=== PATIENT | female | born 2000 | race Caucasian/White ===

== ENCOUNTER 2025-03-21 07:35 | Inpatient (IN) ==
--- NOTE | 2025-03-21 08:06 | Anesthesiology Consultation ---
Date of Service March 21, 2025 Assessment & Plan Chart Review Chart Review: Patient NOT seen in Pre Admission Testing and Acceptable Risk for Labor Epidural Consults Requested none ASA ASA2 Proposed Anesthesia Anesthesia Type: Labor Epidural Risk / Benefits Reviewed With: PT / POA / Parent / Guardian, Accepts Plan and Informed Consent Obtained History Allergies Allergy/AdvReac Type Severity Reaction Status Date / Time No Known Allergies Allergy Verified 03/20/25 10:20 Medications Home Medications Medication Instructions Recorded Confirmed Last Taken ascorbic acid (vitamin C) PO 08/28/24 03/20/25 Unknown cetirizine PO 08/28/24 03/20/25 Unknown fluticasone propionate 50 1 spray intranasal DAILY 08/28/24 03/20/25 Unknown mcg/actuation nasal spray,suspension (Flonase Allergy Relief) [id number] PO 08/28/24 03/20/25 Unknown [ Plus] pyridoxine (vitamin B6) PO 08/28/24 03/20/25 Unknown acetone (urine) test (Ketone Urine #50 ea 11/02/24 03/20/25 Unknown Test strips) blood sugar diagnostic (OneTouch #150 ea 11/02/24 03/20/25 Unknown Verio test strips) blood-glucose meter (OneTouch #1 ea 11/02/24 03/20/25 Unknown Verio Reflect Meter) lancets 33 gauge (OneTouch Delica #150 ea 11/02/24 03/20/25 Unknown Plus Lancet) pen needle, diabetic 32 gauge x #100 ea 12/03/24 03/20/25 Unknown " insulin NPH isoph U-100 human 100 26 unit (0.26 mL) subcut QPM #15 mL 02/13/25 03/20/25 Unknown unit/mL (3 mL) subcutaneous pen (Novolin N FlexPen) NPO Date Last Intake of Fluids: 03/21/25 Time Last Intake of Fluids: 07:20 Date Last Intake of Solids: 03/21/25 Time Last Intake of Solids: 07:20 Past Medical History Medical History Allergic reaction UTI (urinary tract infection) Exercise / Class Metabolic Activity 1 > 8 Run/Swim/Ski/Tennis Past Family History Family History Denies family history of Ovarian cancer Breast cancer Colorectal cancer Past Surgical History Surgical History S/P wisdom tooth extraction Past Anesthesia History No Hx of Anesthesia Complications and No Family Hx of Anesthesia Complications History of PONV No Hx of PONV and No Hx of Motion Sickness Social History Smoking Status: Never smoker Do You Dip or Chew Tobacco: No Hx Alcohol Use: No Hx Substance Use: No Review of Systems ROS Unobtainable: All systems reviewed & are unremarkable except as noted in HPI & below Physical Exam Vital Signs Last Vital Signs Pulse 117 H 03/21/25 07:52 BP 134/88 03/21/25 07:52 ENMT Mouth: no TMJ abnormality Thyromental Distance: > or= 3.5 Finger Breadths Mallampati Class: II Neck normal visual inspection and trachea midline; neck extension not limited Respiratory normal respiratory effort Auscultation: lungs clear to auscultation bilaterally Cardiovascular Rate/Rhythm: regular rate and regular rhythm Heart Sounds: no murmur Musculoskeletal Spine: normal cervical ROM Extremities: full ROM of extremities Neurologic moves all extremities Psychiatric Orientation: alert and oriented x 3
[2025-03-21] MEDS ORDERED: ACETAMINOPHEN 500 MG TAB PO PRN (08:33)
[2025-03-21] MEDS ORDERED: OXYTOCIN 30 UNITS/NSS 30 UNITS/500 ML BAG IV PRN ×2 (08:33→20:26)
[2025-03-21] MEDS ORDERED: CALCIUM CARBONATE 500 MG CHEWABLE TAB PO PRN (08:33)
[2025-03-21] MEDS ORDERED: LIDOCAINE 1% LOCAL 20 ML VIAL INFIL PRN (08:33)
[2025-03-21] MEDS: LACTATED RINGER'S 1,000 ML IV PRN (09:01)
[2025-03-21] MEDS: OXYTOCIN 30 UNITS/NSS 30 UNITS/500 ML BAG IV PRN (09:02)
[2025-03-21 09:14] LABS: Hematocrit (blood only) 34.8 % (37.0-47.0); Hemoglobin 12.1 g/dl (12.0-16.0); Mean Corpuscular Hemoglobin 30.4 pg (25.0-34.0); Mean Corpuscular Volume 87.4 fL (80.0-100.0); Platelet Count 177 K/uL (130-400); RDW Standard Deviation 43.0 fL (36.4-46.3); Red Blood Count 3.98 M/uL (4.20-5.40); White Blood Count 10.18 K/ul (4.8-10.8)
--- NOTE | 2025-03-21 12:29 | Hospitalist Consultation ---
Date of Consultation March 21, 2025 Assessment & Plan (1) Encounter for induction of labor: Plan Admit pt; iv, labs, add Pitocin as needed; FHR category I Supervising Physician Co-Signing Physician Notes Patient seen with resident and agree with the above findings and plan. Cervix closed long and high on exam. Attempted Mckeon unsuccessful as cervix very high and posterior. Will start with oxytocin for cervical ripening will plan to place cervical Mckeon if needed when able. History of Present Illness Attending Physician: Jony Loaiza MD History of Present Illness Contractions: Negative Painful: Negative Leaky Fluid: Negative Movement: Present Pt is a 24 yo Female, , 37 wks 2 day, arrives to Labor & Delivery for induction of labor. Pt appears AOx3 and is accompanied by her to the unit Labs: Rhesus Positive, GBS Negative. Rubella Immune Hx of STDs: Negative Allergies Allergy/AdvReac Type Severity Reaction Status Date / Time No Known Allergies Allergy Verified 03/20/25 10:20 Home Medications Medication Instructions Recorded Confirmed Type cetirizine 10 mg PO DAILY 08/28/24 03/21/25 History fluticasone propionate 50 1 spray intranasal DAILY 08/28/24 03/21/25 History mcg/actuation nasal spray,suspension (Flonase Allergy Relief) acetone (urine) test (Ketone Urine #50 ea 11/02/24 03/20/25 Rx Test strips) blood sugar diagnostic (OneTouch #150 ea 11/02/24 03/20/25 Rx Verio test strips) blood-glucose meter (OneTouch #1 ea 11/02/24 03/20/25 Rx Verio Reflect Meter) lancets 33 gauge (OneTouch Delica #150 ea 11/02/24 03/20/25 Rx Plus Lancet) pen needle, diabetic 32 gauge x #100 ea 12/03/24 03/20/25 Rx 5/32" insulin NPH isoph U-100 human 100 26 unit (0.26 mL) subcut QPM #15 mL 02/13/25 03/21/25 Rx unit/mL (3 mL) subcutaneous pen (Novolin N FlexPen) vits no.124-ferrous fum 1 tab PO DAILY 03/21/25 03/21/25 History 27 mg iron-folic acid 800 mcg tablet ( Vitamin) Patient History Medical History (Updated 03/21/25 @ 13:49 by Lisa Rudolph MD) Allergic reaction lip and facial swelling, hives-took prednisone. pt states ?stress related UTI (urinary tract infection) Surgical History S/P wisdom tooth extraction Family History (Updated 03/21/25 @ 09:21 by Maude Kincaid RN) Uncle Heart failure Grandmother (Maternal) Hypertension Grandmother (Maternal) Diabetes Aunt Diabetes Grandfather (Maternal) Diabetes Other Colon cancer Denies family history of Ovarian cancer Breast cancer Social History (Updated 08/28/24 @ 10:56 by Breana Mayfield RN) Smoking Status: Never smoker Do You Dip or Chew Tobacco: No; Hx Alcohol Use: No Hx Substance Use: No Preferred Language: Upper Sorbian Communication Ability: Effective Membership Assistant Required: No Beliefs That Will Affect Care: Islam Islam Beliefs: Evangelical marital status: marital status details: Grabiel Castro (29) [phone] Current Living Situation: Spouse Current Living Situation Comment: Lives with current occupational status: unemployed Feels Safe at Home: Yes Review of Systems Review of Systems: All systems reviewed & are unremarkable except as noted in HPI & below i. Denies fever, chills, sweats ii. Denies SOB, difficulty breathing, chest pain, palpitations, chest pressure iii. Denies breast pain. iv. Denies Dysuria v. Denies headache or changes in vision. Physical Exam Constitutional: WD/WN, vitals as above Eyes: PERRL, conjunctivae normal, anicteric sclerae ENMT: external ear and nose normal, oropharynx normal Neck: trachea midline, no thyromegaly Respiratory: normal respiratory effort, lungs clear to auscultation Cardiovascular: RRR, no murmur, no edema Chest (Breasts): normal inspection/palpation of breasts Gastrointestinal (Abdomen): normal bowel sounds, soft, nontender, no hepatosplenomegaly Musculoskeletal: no cyanosis or clubbing, extremities motor strength 5/5 Skin: no rashes, warm and dry Psychiatric: A+Ox3, euthymic affect Genitourinary: As per Dr. Loaiza's attestation Lymphatic: no cervical or axillary lymphadenopathy Results & Data Results & Data Vital Signs (Past 12 Hours) Vital Signs Temp Pulse Resp BP 03/21/25 11:23 80 03/21/25 11:23 127/74 03/21/25 11:22 18 03/21/25 11:22 37.1 C 18 03/21/25 10:42 83 03/21/25 10:42 129/83 03/21/25 10:40 16 03/21/25 10:40 16 03/21/25 09:53 86 03/21/25 09:53 127/83 03/21/25 09:21 37 C 117 H 18 134/88 03/21/25 07:52 117 H 134/88 03/21/25 07:50 18 03/21/25 07:50 37.0 C 18 Resident Activity Tracking Resident Involvement: Resident Care Provided Care Provided: OB Delivery
[2025-03-21] MEDS ORDERED: BUPIVACAINE 0.25% PF 30 ML VIAL EPI PRN (13:43)
[2025-03-21] MEDS ORDERED: NALBUPHINE HCL INJ 10 MG/ML AMP IV PRN (13:43)
[2025-03-21] MEDS ORDERED: LIDOCAINE 2% MPF LOCAL 5 ML VIAL EPI PRN (13:43)
[2025-03-21] MEDS ORDERED: SODIUM CHLORIDE 0.9% PF INJ 10 ML VIAL EPI PRN (13:43)
[2025-03-21] MEDS ORDERED: diphenhydrAMINE 50 MG/ML VIAL IV PRN (13:43)
[2025-03-21] MEDS ORDERED: NALOXONE HCL 0.4 MG/1 ML VIAL/CARP IV PRN (13:43)
[2025-03-21] MEDS ORDERED: ROPIVACAINE 0.5% PF 5 MG/ML 20 ML VIAL EPI PRN (13:43)
[2025-03-21] MEDS ORDERED: NALOXONE HCL 1 MG in SODIUM CHLORIDE 0.9% 1,000 ML IV PRN (13:43)
[2025-03-21] MEDS ORDERED: fentANYL 2 MCG/ML BUPIVacaine 0.125%-NSS 100ML BAG EPI PRN (13:43)
[2025-03-21] MEDS: LIDOCAINE 2%/EPINEPHRINE 1:200,000 20 ML PF EPI STA (14:05)
[2025-03-21] MEDS: BUPIVACAINE 0.25% PF 30 ML VIAL EPI STA (14:05)
[2025-03-21] MEDS: fentANYL 2 MCG/ML BUPIVacaine 0.125%-NSS 100ML BAG ONE (14:05)
[2025-03-21] MEDS: SODIUM CHLORIDE 0.9% PF INJ 10 ML VIAL EPI STA (14:17)
--- NOTE | 2025-03-21 15:34 | Labor Progress Brief Note ---
Date of Service March 21, 2025 Subjective Reason For Note: Routine Evaluation Assessment & Plan (1) Encounter for induction of labor: Plan: Minimal cervical change noted although patient favorable. Has an excellent contraction pattern at present. AROM for clear. Epidural in place and patient comfortable. Blood sugars and vitals have been within normal range. (2) Insulin controlled gestational diabetes mellitus (GDM) during : Trimester: third trimester Qualified Code(s): O24.414 - Gestational diabetes mellitus in , insulin controlled Admission and Anticipated Discharge Date Admission Date: March 21, 2025 Physical Exam Genitourinary: Manual OB Exam: + cervical dilation 3 cm, + cervical effacement 80%, + station -2 and + amniotic fluid (AROM) clear OB Exam Monitor Tracing: + external FHT monitor used, + external uterine monitor used, + category I and + normal FHT variability Results & Data Vital Signs (Past 12 Hours) Vital Signs Temp Pulse Resp BP Pulse Ox 03/21/25 15:28 95 03/21/25 15:28 61 03/21/25 15:27 90 03/21/25 15:27 77 03/21/25 15:24 65 03/21/25 15:24 111/64 03/21/25 15:23 96 03/21/25 15:23 64 03/21/25 15:21 91 03/21/25 15:21 77 03/21/25 15:18 98 03/21/25 15:18 71 03/21/25 15:13 96 03/21/25 15:13 76 03/21/25 15:10 70 03/21/25 15:10 115/65 03/21/25 15:08 97 03/21/25 15:08 70 03/21/25 15:03 98 03/21/25 15:03 63 03/21/25 14:58 98 03/21/25 14:58 62 03/21/25 14:55 70 03/21/25 14:55 116/64 03/21/25 14:53 99 03/21/25 14:53 61 03/21/25 14:48 98 03/21/25 14:48 66 03/21/25 14:43 98 03/21/25 14:43 59 L 03/21/25 14:40 74 03/21/25 14:40 120/74 03/21/25 14:38 99 03/21/25 14:38 85 03/21/25 14:33 98 03/21/25 14:33 94 H 03/21/25 14:28 98 03/21/25 14:28 94 H 03/21/25 14:23 99 03/21/25 14:23 100 H 03/21/25 14:23 104 H 03/21/25 14:23 118/75 03/21/25 14:21 87 03/21/25 14:21 124/74 03/21/25 14:20 91 H 03/21/25 14:20 128/78 03/21/25 14:18 99 03/21/25 14:18 81 03/21/25 14:17 87 03/21/25 14:17 123/64 03/21/25 14:15 85 03/21/25 14:15 124/64 03/21/25 14:13 99 03/21/25 14:13 93 H 03/21/25 14:13 126/63 03/21/25 14:11 83 03/21/25 14:11 130/69 03/21/25 14:09 86 L 03/21/25 14:09 83 03/21/25 14:09 131/75 03/21/25 14:08 100 03/21/25 14:08 96 H 03/21/25 14:07 96 H 03/21/25 14:07 134/79 03/21/25 14:06 93 H 03/21/25 14:06 137/81 03/21/25 14:05 84 03/21/25 14:05 141/77 H 03/21/25 14:03 94 03/21/25 14:03 106 H 03/21/25 14:03 146/91 H 03/21/25 14:00 93 03/21/25 14:00 96 H 03/21/25 14:00 146/81 H 03/21/25 13:58 100 03/21/25 13:58 92 H 03/21/25 13:46 18 03/21/25 13:46 18 03/21/25 13:34 85 03/21/25 13:34 127/80 03/21/25 12:49 90 03/21/25 12:49 144/73 H 03/21/25 11:23 80 03/21/25 11:23 127/74 03/21/25 11:22 18 03/21/25 11:22 37.1 C 18 03/21/25 10:42 83 03/21/25 10:42 129/83 03/21/25 10:40 16 03/21/25 10:40 16 03/21/25 09:53 86 03/21/25 09:53 127/83 03/21/25 09:21 37 C 117 H 18 134/88 03/21/25 07:52 117 H 134/88 03/21/25 07:50 18 03/21/25 07:50 37.0 C 18 Coding Level of Care Code None Diagnoses Encounter for induction of labor Z34.90 Insulin controlled gestational diabetes mellitus (GDM) in third trimester O24.414 Trimester: third trimester
[2025-03-21] MEDS: BUPIVACAINE 0.25% PF 30 ML VIAL ONE (17:03)
[2025-03-21] MEDS: SODIUM CHLORIDE 0.9% PF INJ 10 ML VIAL ONE (17:03)
[2025-03-21] MEDS: LIDOCAINE 2%/EPINEPHRINE 1:200,000 20 ML PF ONE (17:04)
[2025-03-21] MEDS ORDERED: HYDROCORTISONE ACETATE 25 MG SUPP PR PRN (20:26)
--- NOTE | 2025-03-21 20:29 | Delivery Summary ---
Vaginal Delivery Summary Date of Service March 21, 2025 Vaginal Delivery Summary and 1st Degree LAC Patient progressed to 10 cm dilated, 100% effaced +2 station and posterior intact perineum with epidural anesthesia delivered a viable with weight and Apgars pending. Has a delivered without difficulty quickly followed by shoulders and body. was noted be vigorous upon delivery and a 1 minute delayed cord clamping was initiated. Cord was then double clamped and cut remained on the maternal abdomen. Cord blood obtained and attention turned to delivery the placenta was delivered intact with three-vessel cord with gentle cord traction. Inspection of perineum vagina and cervix there is noted to be a first-degree perineal laceration with mild labial extensions. Lacerations were repaired with 3-0 Vicryl in continuous running stitch. Needle sponge and instrument counts were correct at the completion of the case. Both mother and stable in the immediate postdelivery timeframe. No complications noted and blood loss per QBL. [facility] Vaginal Delivery Charge Delivery Type Details: and 1st Degree LAC
--- NOTE | 2025-03-21 20:36 | Anesthesia Procedure Note ---
Date of Service March 21, 2025 Anesthesia Post Epidural Note Vital Signs Vital Signs: Temp Pulse Resp BP Pulse Ox 37.1 C 83 18 110/79 98 03/21/25 19:10 03/21/25 20:21 03/21/25 19:10 03/21/25 20:21 03/21/25 20:19 Pain Intensity Lower Back: Pain Intensity: 5 Notes Mental Status: alert / awake / arousable and participated in evaluation Nausea / Vomiting: adequately controlled Pain: adequately controlled Airway Patency, RR, SpO2: stable & adequate BP & HR: stable & adequate Hydration State: stable & adequate Neuraxial Anesthesia: was administered and sensory block is resolving Anesthetic Complications: no major complications apparent Epidural: Removed without complications and With tip intact
[2025-03-21] MEDS: DIPHTHER/TETAN/PERTUS Vaccine (Tdap, Adol/Adult) 0.5mL IM ONE (21:18)
[2025-03-21] MEDS: DOCUSATE SODIUM 100 MG CAP PO SCH (21:23)
[2025-03-22] MEDS: IBUPROFEN 600 MG TAB PO PRN (00:29)
[2025-03-22] MEDS: ACETAMINOPHEN 325 MG TAB PO PRN (00:30)
[2025-03-22] MEDS: BENZOCAINE 20% SPRY 85 APPLN/85 GM CAN EXT PRN (03:29)
--- NOTE | 2025-03-22 06:39 | Obstetrical Progress Note ---
Date of Service <Lisa Rudolph MD - Last Filed: 03/22/25 06:39> March 22, 2025 Assessment & Plan <Lisa Rudolph MD - Last Filed: 03/22/25 06:39> (1) care following vaginal delivery: Plan Stable routine care. Breast feeding. Rhesus Positive. Rubella Immune <Jony Loaiza MD - Last Filed: 03/22/25 07:37> (1) care following vaginal delivery: Subjective <Lisa Rudolph MD - Last Filed: 03/22/25 06:39> Ambulation: ambulating normally Voiding: no voiding problems Passing Gas:: Yes Lochia:: Small Feeding Type:: breast feeding Current Pain Level(1-10): 1 Pt is a 24 yo Female, G1, P0, at 37 wks 2dys. She is post op 1 day after induced labor and delivery. Pt is resting comfortably in the AM. Pt further denies any symptoms of SOB, Chest Pain, NVD, and /or LE Edema or pain Review of Systems All systems reviewed & are unremarkable except as noted in HPI & below i. Denies fever, chills, sweats ii. Denies SOB, difficulty breathing, chest pain, palpitations, chest pressure iii. Denies breast pain. iv. Denies Dysuria v. Denies headache or changes in vision. Physical Exam <Lisa Rudolph MD - Last Filed: 03/22/25 06:39> Constitutional WD/WN, vitals as above Respiratory normal respiratory effort, lungs clear to auscultation Cardiovascular RRR, no murmur, no edema Gastrointestinal (Abdomen) normal bowel sounds, soft, nontender, no hepatosplenomegaly Psychiatric A+Ox3, euthymic affect Genitourinary As per Dr. Loaiza's attestation Results & Data <Lisa Rudolph MD - Last Filed: 03/22/25 06:39> Vital Signs (Past 12 Hours) Vital Signs Temp Pulse Pulse Resp BP BP Pulse Ox 03/22/25 03:27 36.7 C 64 16 104/64 97 03/21/25 23:57 36.9 C 87 18 121/77 96 03/21/25 23:57 03/21/25 23:20 18 03/21/25 23:05 95 H 03/21/25 23:05 115/61 03/21/25 22:50 96 H 03/21/25 22:50 121/69 03/21/25 22:35 89 03/21/25 22:35 136/66 03/21/25 22:20 18 03/21/25 22:20 78 03/21/25 22:20 127/70 03/21/25 22:05 93 H 03/21/25 22:05 125/61 03/21/25 21:50 18 03/21/25 21:50 77 03/21/25 21:50 126/75 03/21/25 21:35 89 03/21/25 21:35 121/70 03/21/25 21:20 18 03/21/25 21:20 73 03/21/25 21:20 119/70 03/21/25 21:05 18 03/21/25 21:05 85 03/21/25 21:05 119/67 03/21/25 20:50 18 03/21/25 20:50 88 03/21/25 20:50 119/66 03/21/25 20:35 16 03/21/25 20:35 87 03/21/25 20:35 125/74 03/21/25 20:21 83 03/21/25 20:21 110/79 03/21/25 20:20 16 03/21/25 20:19 98 03/21/25 20:19 85 03/21/25 20:14 97 03/21/25 20:14 82 03/21/25 20:09 97 03/21/25 20:09 86 03/21/25 20:09 123/91 03/21/25 20:04 99 03/21/25 20:04 136 H 03/21/25 19:59 99 03/21/25 19:59 93 H 03/21/25 19:54 99 03/21/25 19:54 125 H 03/21/25 19:54 94 03/21/25 19:54 110 H 03/21/25 19:49 99 03/21/25 19:49 100 H 03/21/25 19:48 90 03/21/25 19:48 95 H 03/21/25 19:44 97 03/21/25 19:44 112 H 03/21/25 19:39 99 03/21/25 19:39 105 H 03/21/25 19:37 90 03/21/25 19:37 89 03/21/25 19:34 100 03/21/25 19:34 94 H 03/21/25 19:29 100 03/21/25 19:29 87 03/21/25 19:26 94 03/21/25 19:26 100 H 03/21/25 19:25 95 H 03/21/25 19:25 160/76 H 03/21/25 19:24 100 03/21/25 19:24 92 H 03/21/25 19:19 100 03/21/25 19:19 96 H 03/21/25 19:14 99 03/21/25 19:14 101 H 03/21/25 19:10 18 03/21/25 19:10 37.1 C 18 03/21/25 19:09 100 03/21/25 19:09 99 H 03/21/25 19:09 141/92 H 03/21/25 19:06 93 03/21/25 19:06 86 03/21/25 19:04 100 03/21/25 19:04 85 03/21/25 18:59 95 03/21/25 18:59 76 03/21/25 18:56 85 03/21/25 18:56 136/67 03/21/25 18:54 99 03/21/25 18:54 79 03/21/25 18:51 90 03/21/25 18:51 87 03/21/25 18:49 95 03/21/25 18:49 85 03/21/25 18:45 94 03/21/25 18:45 97 H 03/21/25 18:44 100 03/21/25 18:44 97 H 03/21/25 18:39 86 L 03/21/25 18:39 91 H 03/21/25 18:37 88 L 03/21/25 18:37 103 H O2 Del Method 03/22/25 03:27 Room Air 03/21/25 23:57 Room Air 03/21/25 23:57 Room Air 03/21/25 23:20 03/21/25 23:05 03/21/25 23:05 03/21/25 22:50 03/21/25 22:50 03/21/25 22:35 03/21/25 22:35 03/21/25 22:20 03/21/25 22:20 03/21/25 22:20 03/21/25 22:05 03/21/25 22:05 03/21/25 21:50 03/21/25 21:50 03/21/25 21:50 03/21/25 21:35 03/21/25 21:35 03/21/25 21:20 03/21/25 21:20 03/21/25 21:20 03/21/25 21:05 03/21/25 21:05 03/21/25 21:05 03/21/25 20:50 03/21/25 20:50 03/21/25 20:50 03/21/25 20:35 03/21/25 20:35 03/21/25 20:35 03/21/25 20:21 03/21/25 20:21 03/21/25 20:20 03/21/25 20:19 03/21/25 20:19 03/21/25 20:14 03/21/25 20:14 03/21/25 20:09 03/21/25 20:09 03/21/25 20:09 03/21/25 20:04 03/21/25 20:04 03/21/25 19:59 03/21/25 19:59 03/21/25 19:54 03/21/25 19:54 03/21/25 19:54 03/21/25 19:54 03/21/25 19:49 03/21/25 19:49 03/21/25 19:48 03/21/25 19:48 03/21/25 19:44 03/21/25 19:44 03/21/25 19:39 03/21/25 19:39 03/21/25 19:37 03/21/25 19:37 03/21/25 19:34 03/21/25 19:34 03/21/25 19:29 03/21/25 19:29 03/21/25 19:26 03/21/25 19:26 03/21/25 19:25 03/21/25 19:25 03/21/25 19:24 03/21/25 19:24 03/21/25 19:19 03/21/25 19:19 03/21/25 19:14 03/21/25 19:14 03/21/25 19:10 03/21/25 19:10 03/21/25 19:09 03/21/25 19:09 03/21/25 19:09 03/21/25 19:06 03/21/25 19:06 03/21/25 19:04 03/21/25 19:04 03/21/25 18:59 03/21/25 18:59 03/21/25 18:56 03/21/25 18:56 03/21/25 18:54 03/21/25 18:54 03/21/25 18:51 03/21/25 18:51 03/21/25 18:49 03/21/25 18:49 03/21/25 18:45 03/21/25 18:45 03/21/25 18:44 03/21/25 18:44 03/21/25 18:39 03/21/25 18:39 03/21/25 18:37 03/21/25 18:37 Supervising Physician <Jony Loaiza MD - Last Filed: 03/22/25 07:37> Co-Signing Physician Notes Patient seen with resident and agree with the above findings and plan. Patient doing well and denying any concerns. Continue routine care
[2025-03-22] MEDS: FERROUS SULFATE 325 MG TAB PO SCH (09:39)
[2025-03-22] MEDS: PRENATAL VITAMIN 1 TAB PO SCH (09:39)
[2025-03-23 00:38] VITALS: RESP 16
[2025-03-23 04:51] VITALS: TEMP 97.7; O2SAT 98
--- NOTE | 2025-03-23 07:05 | Obstetrical Progress Note ---
Date of Service <Lisa Rudolph MD - Last Filed: 03/23/25 08:35> March 23, 2025 Assessment & Plan <Lisa Rudolph MD - Last Filed: 03/23/25 08:35> (1) care following vaginal delivery: Plan -Stable routine care. Breast feeding. Rhesus positive. Rubella Immune. GBS Negative. Continue to monitor. <Milagro Graves MD, FACOG - Last Filed: 03/23/25 08:38> (1) care following vaginal delivery: Subjective <Lisa Rudolph MD - Last Filed: 03/23/25 08:35> Ambulation: ambulating normally Voiding: no voiding problems Passing Gas:: Yes Diet Tolerance:: regular diet Lochia:: Small Feeding Type:: breast feeding Current Pain Level(1-10): 0 PP2 Review of Systems All systems reviewed & are unremarkable except as noted in HPI & below i. Denies fever, chills, sweats ii. Denies SOB, difficulty breathing, chest pain, palpitations, chest pressure iii. Denies breast pain. iv. Denies Dysuria v. Denies headache or changes in vision. Physical Exam <Lisa Rudolph MD - Last Filed: 03/23/25 08:35> Constitutional WD/WN, vitals as above Respiratory normal respiratory effort, lungs clear to auscultation Cardiovascular RRR, no murmur, no edema Gastrointestinal (Abdomen) normal bowel sounds, soft, nontender, no hepatosplenomegaly Skin no rashes, warm and dry Genitourinary On palpation of abdomen, uterus is firm and has begun involution, at approximatly 1cm/day Results & Data <Lisa Rudolph MD - Last Filed: 03/23/25 08:35> Vital Signs (Past 12 Hours) Vital Signs Temp Pulse Resp BP Pulse Ox O2 Del Method 03/23/25 04:30 120/75 03/23/25 00:00 36.5 C 88 16 134/90 98 Room Air 03/22/25 19:35 36.6 C 76 20 143/77 H 97 Room Air Supervising Physician <Milagro Graves MD, FACOG - Last Filed: 03/23/25 08:38> Co-Signing Physician Notes Resident Physician Supervision Note: I interviewed and examined the patient. Discussed with Dr. Bernstein and agree with findings and plan as documented in the note. Any exceptions or clarifications are listed here: Doing well. Plan d/c. Instructions given. Documented By: Milagro Graves MD, FACOG
[2025-03-23 09:43] VITALS: BP 120/79; PULSE 72
== END 2025-03-23 19:00 | disposition home or self-care (01) | DRG 807 ==
LOC: 4S1 07:35 → 4E2 23:58